=== PATIENT | male | born 1960 | race Caucasian/White ===

== ENCOUNTER 2024-03-25 18:43 | Inpatient (IN) | payer MEDICARE, OTHER ==
[~2024-03-25] VITALS: Ht 182.9 cm; Wt 108.4 kg
[2024-03-25 19:22] LABS: BASOPHILS PERCENT AUTO 0 % (0-2); EOSINOPHILS PERCENT AUTO 0 % (0-6); Hematocrit 30.3 % (37.0-53.0); Hemoglobin 9.8 g/dL (13.5-17.5); IMMATURE GRAN ABSOLUTE AUTO 0.01 K/mm3 (0.00-0.10); IMMATURE GRAN PERCENT AUTO 1 % (0-1); LYMPHOCYTES ABSOLUTE AUTO 0.34 K/mm3 (0.84-5.20); LYMPHOCYTES PERCENT AUTO 23 % (21-46); MONOCYTES ABSOLUTE AUTO 0.29 K/mm3 (0.16-1.47); MONOCYTES PERCENT AUTO 20 % (4-13); Mean Corpuscular HGB Conc 32.3 g/dL (31.5-36.5); Mean Corpuscular Volume 93 fL (80-100); NEUTROPHILS ABSOLUTE AUTO 0.82 K/mm3 (1.96-9.15); NEUTROPHILS PERCENT AUTO 56 % (41-73); Platelet Count 130 K/mm3 (150-400); RDW Standard Deviation 67.4 fL (35.1-46.3); Red Blood Cell Count 3.27 M/mm3 (4.30-5.90); White Blood Cell Count 1.46 K/mm3 (4.00-11.30)
[2024-03-25 19:50] LABS: Albumin/Globulin Ratio 0.8 (0.8-1.8); Bilirubin, Total 0.5 mg/dL (0.1-1.0); Bun/Creatinine Ratio 14.9 (12.0-20.0); Calcium, Blood 9.1 mg/dL (8.5-10.1); Creatinine, Blood 0.8 mg/dL (0.60-1.20); Globulin, Blood 3.9 g/dL (2.2-4.0); Potassium, Blood 3.8 mmol/L (3.5-5.5); Total Protein, Blood 6.9 g/dL (6.4-8.2)
[2024-03-25] MEDS ORDERED: Ibuprofen 600 MG Tab PO ONE (19:50)
[2024-03-25] MEDS ORDERED: FentaNYL Citrate 50 MCG/ML 2 ML Injection IV ONE (20:05)
[2024-03-25] MEDS ORDERED: Piperacillin/Tazobactam Sod 3.375 GM in NS 100 ML IV ONE (20:05)
[2024-03-25 21:01] LABS: Influenza A, PCR NEGATIVE (NEGATIVE); Influenza B, PCR NEGATIVE (NEGATIVE); Resp Syncytial Virus, PCR NEGATIVE (NEGATIVE); SARS-Cov-2 (COVID-19) PCR, MMC NEGATIVE (NEGATIVE)
[2024-03-25 21:35] LABS: Source, Urine Clean Catch
[2024-03-25 21:46] LABS: Appearance, Urine Clear (Clear); Bilirubin, Urine Neg (Neg); Blood, Urine Neg (Neg); Color, Urine Yellow (P-Yellow); Glucose Qualitative, Urine Neg (Neg); Ketones, Urine Neg (Neg); Leukocyte Esterase, Urine 1+ (Neg); Nitrite, Urine Neg (Neg); Protein, Urine Neg (Neg); Specific Gravity, Urine 1.015 (1.003-1.022); Urobilinogen, Urine 1+ (Normal)
[2024-03-25 21:57] LABS: Bacteria Mod /hpf; Red Blood Cells, Urine 0-2 /hpf (0-2); Squamous Epithelial Cells Few /hpf (Few)
[2024-03-25] MEDS ORDERED: Acetaminophen 325 MG TABLET PO PRN (22:55)
[2024-03-25] MEDS ORDERED: FLU VACC TS2024-25(6MOS UP)/PF 45 MCG/0.5 ML SYRINGE IM ONE (22:55)
[2024-03-25] MEDS ORDERED: FentaNYL Citrate 50 MCG/ML 2 ML Injection IV PRN (22:55)
[2024-03-25] MEDS ORDERED: NS 1,000 ML IV ONE (22:55)
[2024-03-25] MEDS ORDERED: Ondansetron HCl 2 MG / ML 2ML Vial IV PRN (22:55)
[2024-03-25] MEDS ORDERED: Enoxaparin 40 MG/0.4 ML SYR SC SCH (23:00)
[2024-03-26] MEDS ORDERED: Cefepime HCl 1,000 MG in NS 100 ML IV SCH
[2024-03-26 06:16] LABS: BASOPHILS PERCENT AUTO 0 % (0-2); EOSINOPHILS ABSOLUTE AUTO 0.01 K/mm3 (0.00-0.68); EOSINOPHILS PERCENT AUTO 1 % (0-6); Hematocrit 26.8 % (37.0-53.0); Hemoglobin 8.5 g/dL (13.5-17.5); IMMATURE GRAN ABSOLUTE AUTO 0.01 K/mm3 (0.00-0.10); IMMATURE GRAN PERCENT AUTO 1 % (0-1); LYMPHOCYTES ABSOLUTE AUTO 0.62 K/mm3 (0.84-5.20); LYMPHOCYTES PERCENT AUTO 37 % (21-46); MONOCYTES ABSOLUTE AUTO 0.43 K/mm3 (0.16-1.47); MONOCYTES PERCENT AUTO 26 % (4-13); Mean Corpuscular HGB 29.8 pg (26.0-34.0); Mean Corpuscular HGB Conc 31.7 g/dL (31.5-36.5); Mean Corpuscular Volume 94 fL (80-100); Mean Platelet Volume 9.2 fL (9.1-12.4); NEUTROPHILS PERCENT AUTO 36 % (41-73); Platelet Count 106 K/mm3 (150-400); RDW Coefficient Variation 20.1 % (11.7-14.2); RDW Standard Deviation 68.5 fL (35.1-46.3); Red Blood Cell Count 2.85 M/mm3 (4.30-5.90); White Blood Cell Count 1.67 K/mm3 (4.00-11.30)
[2024-03-26 06:44] LABS: Albumin, Blood 2.6 g/dL (3.4-5.0); Albumin/Globulin Ratio 0.7 (0.8-1.8); Bilirubin, Total 0.4 mg/dL (0.1-1.0); Bun/Creatinine Ratio 14.5 (12.0-20.0); Calcium, Blood 8.3 mg/dL (8.5-10.1); Creatinine, Blood 0.83 mg/dL (0.60-1.20); Globulin, Blood 3.7 g/dL (2.2-4.0); Potassium, Blood 3.8 mmol/L (3.5-5.5); Total Protein, Blood 6.3 g/dL (6.4-8.2)
[2024-03-26] MEDS ORDERED: ACYCLOVIR800 MG PO (07:45)
[2024-03-26] MEDS ORDERED: [UNRECOGNIZED DRUG - CODE] PO (07:46)
[2024-03-26] MEDS ORDERED: CYCL10 PO (07:47)
[2024-03-26] MEDS ORDERED: LEVOFLOXACIN50011 PO (07:48)
[2024-03-26] MEDS ORDERED: PROZAC40 MG PO (07:48)
[2024-03-26] MEDS ORDERED: PRAV20 PO (07:50)
[2024-03-26] MEDS ORDERED: PAROEX473 ML MM (07:50)
[2024-03-26] MEDS ORDERED: Cyclobenzaprine5 MG PO (07:51)
[2024-03-26] MEDS ORDERED: HYDROXYZ HCL 25 MG PO (07:53)
[2024-03-26] MEDS ORDERED: TRIDERM28.4 GM TOP (07:54)
[2024-03-26] MEDS ORDERED: TAMSULOSIN HCL0.4 M1 PO (07:55)
[2024-03-26] MEDS ORDERED: LISI20 PO (07:55)
[2024-03-26] MEDS ORDERED: METOPROLOL TART25 MG PO (07:56)
[2024-03-26] MEDS ORDERED: Cyclobenzaprine HCl 10 MG Tab PO PRN (09:00)
--- NOTE | 2024-03-26 09:53 | NUR ---
Pt. is awake in bed and welcomes my visit. Pt. is pleasant. Spouse is at bedside. Pt. and spouse verbalized that they were returning home from [facility] [place] when pain caused them to stop at our facility. Facil;itate a life review and listen with interest and emapathy. Pt. verbalized a hope to be able to have his infection clear so they can return home, Prayed with the Pt. and spouse. Both verbalized gratitude for the spiritual care visit.
[2024-03-26] MEDS ORDERED: Cyclobenzaprine HCl 10 MG Tab PO ONE (17:00)
[2024-03-26] MEDS ORDERED: HydrOXYzine Pamoate 25 MG Cap PO PRN (17:05)
--- NOTE | 2024-03-26 17:52 | NUR ---
UNIT TRANSFER NOTE PT AMBULATED WITH FITTER MACHINIST TO RM 220. PT ALERT AND AMBULATING INDEPENDENTLY. ACCOMPANIED PT. PLAN IS TO TRANSFER PT TO [facility] TOMORROW FOR ONGOING ONCOLOGY CARE R/T HIS LEUKEMIA. PT ORIENTED TO ROOM, CALL LIGHT IN REACH, AND SIDE RAILS UP.
--- NOTE | 2024-03-26 17:54 | NUR ---
SHIFT/TRANSFER NOTE: PT A/OX4 ABLE TO MAKE HIS NEEDS KNOWN. HE IS ON RA WITH NO REPORTS OF SOB. HE IS ON TELE IN NSR WITH NO ACUTE CHANGES. HE IS IND WITH ADLS. HE HAS A CLAUDIA PICC LINE THAT IS PATENT. HE TRANSFERED TO SURGICAL FLOOR AT 1750. REPORT GIVEN TO SURGICAL PRIMARY RN. PER PT REQUEST CODE STATUS CHANGED TO DNR. PT WAITING TRANSFER TO [facility].
[2024-03-26] MEDS ORDERED: Triamcinolone Acet 0.1% Ointment 15 GM TOP SCH (18:00)
[2024-03-26] MEDS ORDERED: Triamcinolone Acet 0.1% Ointment 15 GM TOP PRN (18:03)
[2024-03-26 19:21] VITALS: BP 164/85
[2024-03-26] MEDS ORDERED: HYDROmorphone HCl/Pf 1MG SYR IV PRN ×2 (19:50→23:30)
[2024-03-26] MEDS ORDERED: Pravastatin Sodium 20 MG Tab PO SCH (21:00)
[2024-03-26] MEDS ORDERED: Metoprolol Tartrate 25 MG Tab PO SCH (21:00)
[2024-03-26] MEDS ORDERED: Chlorhexidine Mouth Care 15 ML UDC MT SCH (21:00)
[2024-03-26] MEDS ORDERED: Metoprolol Tartrate 1 MG/ML 5 ML VIAL IV ONE (21:30)
--- NOTE | 2024-03-26 21:30 | NUR ---
TELE-AFIB CALL FROM [employer] AT 2116 THAT PT CONVERTED TO AFIB IN THE 140'S, PT HAD BEEN ST IN THW 110'S PRIOR TO THIS. PT HAS HISTORY OF AFIB, AND HAD JUST RECEIVED HIS SCHEDULED HS PO DOSE OF METOPROLOL. VITALS OBTAINED AND PROVIDER NOTIFIED BY FIELD ADJUSTERHEIDI BREWSTER THAT PT CONVERTED TO AFIB IN THE 140'S, AND HAD RECEIVED PO METOPROLOL JUST BEFORE HE CONVERTED TO AFIB. DR. STERLING ORDERED 5 MG OF IV METOPROLOL. 2157- IV METOPROLOL GIVEN. 2203- AFTER METOPROLOL GIVEN, HR CAME DOWN TO AFIB 105 PER [employer] SKIRT PANEL ASSEMBLER. 2223- AFIB 115 PER [employer] MONIOR TECH 2302- PT CONVERTED TO ST 104, PER [employer] SKIRT PANEL ASSEMBLER.
[2024-03-26 21:49] VITALS: BP 151/67
[2024-03-26] MEDS ORDERED: NS 250 ML IV PRN (23:10)
--- NOTE | 2024-03-26 23:28 | NUR ---
PT REPORTING PAIN MED NOT CONTROLLING PAIN FOR Q 6 HR ORDERED. PT HAD RECEIVED 1 MG AND ORDER WAS FOR 1-2 MG.ADDITIONAL 1 MG DOSE GIVEN.I CALLED DR STERLING AND ADVISED OF PAIN CONTROL CONCERNS,ADVISED URINE WAS NOT CULTURED WITH U/A ALTHOUGH PT CURRENTLY ON ANTIBIOTICS AND PT POINTS TO FLANK AREAS WHEN DISCUSSING INCREASED PAIN.ALSO REVIEWED TEMPS.PAIN MED ORDERS CHANGED.
[2024-03-26 23:36] VITALS: BP 139/75
[2024-03-27] VITALS (8 sets, daily range): BP systolic 112–147; BP diastolic 62–76
--- NOTE | 2024-03-27 00:11 | NUR ---
TRANSFER-PCU PT HAS HAD INTERMITTENT SEVERE BACK PAIN/SPASMS THAT HAVE COME AND GONE. FEVERS, TELE CHANGES, AND GENERALLY APPEARS UNWELL. DR. GALARZA HAS BEEN MADE AWARE OF STATUS CHANGES OVER THE COURSE OF THE NIGHT AND ORDERED FOR PT TO TRANSFER TO PCU AT THIS TIME. 1999- PT RECEIVED FENTANYL AND FLEXERIL BEFORE SHIFT CHANGE, THAT PROVIDED LITTLE RELIEF. DR. STERLING CALLED AND NOTIFIED AND IV DILAUDID ORDERED. IV DILAUDID GIVEN SHORTLY AFTER, AND PT REPORTED RELIEF. PT BACK PAIN HAS BEEN INTENSE, REPORTS 10/10, AND PT REPORTED TO PLACING JUDGE THAT THE PAIN WAS IN HIS FLANK AREA. IV DIALUDID INITIALLY ORDERED EVERY 6HR, HOWEVER FREQUENCY WAS LATER CHANGED TO Q4HR Q6HR HAD NOT BEEN [place] FOR PAIN RELIER. 2116-CALL FROM TRANSITION SOCIAL WORKER THAT PT CONVERTED TO AFIB 140'S, IV METOPROLOL GIVEN. 2201-PT CONVERTED BACK TO SINUS, ST 104 PER TRANSITION SOCIAL WORKER. 2205-TYLENOL GIVEN FOR FEVER. 2335- PT RESPONDED TO TYLENOL TEMP HAS NOW COME DOWN 100.6
--- NOTE | 2024-03-27 01:00 | NUR ---
TRANSFER REPORT GIVEN TO [employer] TO ASSUME CARE OF PT. PT BELONGINGS IN PLACE, WAITING FOR PCU ROOM TO BE CLEANED AND MADE AVLAIBLE BEFORE TRANSFER. HOUSKEEPING CLEANING ROOM AT THIS TIME. IV ANTIBIOTICS INFUSING, PT RESTING IN BED. REPORTS THAT HIS PAIN IS IMPROVED 07/26. PT/FAMILY MADE AWARE OF CURRENT PLAN OF CARE.
--- NOTE | 2024-03-27 02:30 | NUR ---
TRANSFERRED PT PER BED TO PCU RM 5 WITH WELDER MACHINE OPERATOR AND THIS RN IN ATTENDANCE. AT BEDSIDE.
--- NOTE | 2024-03-27 03:41 | NUR ---
SHIFT NOTE PT TRANSFERED TO PCU AT APPROXIMATELY 0215. PT RESTING COMFORTABLY IN BED WITHOUT ANY PAIN OR DISCOMFORT. PT TEMP 99.3. PT AND FAMILY STATED [facility] IS REQUESTING FOR HIM TO BE TRANSFERED BACK. CALL LIGHT WITHIN REACH, PLAN OF CARE CONTINUED.
[2024-03-27] MEDS ORDERED: Voriconazole 200 MG Tab PO SCH (06:00)
[2024-03-27] MEDS ORDERED: FLUoxetine HCL 20 MG CAP PO SCH (09:00)
[2024-03-27] MEDS ORDERED: Tamsulosin HCl 0.4 MG Cap PO SCH (09:00)
[2024-03-27] MEDS ORDERED: Acyclovir 400 MG Tab PO SCH (09:00)
[2024-03-27] MEDS ORDERED: Lisinopril 20 MG Tab PO SCH (09:00)
[2024-03-27 09:48] LABS: BASOPHILS PERCENT AUTO 0 % (0-2); EOSINOPHILS PERCENT AUTO 0 % (0-6); Hematocrit 26.3 % (37.0-53.0); Hemoglobin 8.2 g/dL (13.5-17.5); IMMATURE GRAN ABSOLUTE AUTO 0.01 K/mm3 (0.00-0.10); IMMATURE GRAN PERCENT AUTO 1 % (0-1); LYMPHOCYTES ABSOLUTE AUTO 0.49 K/mm3 (0.84-5.20); LYMPHOCYTES PERCENT AUTO 25 % (21-46); MONOCYTES PERCENT AUTO 20 % (4-13); Mean Corpuscular HGB 29.4 pg (26.0-34.0); Mean Corpuscular HGB Conc 31.2 g/dL (31.5-36.5); Mean Corpuscular Volume 94 fL (80-100); Mean Platelet Volume 8.5 fL (9.1-12.4); NEUTROPHILS ABSOLUTE AUTO 1.08 K/mm3 (1.96-9.15); NEUTROPHILS PERCENT AUTO 55 % (41-73); Platelet Count 104 K/mm3 (150-400); RDW Coefficient Variation 19.8 % (11.7-14.2); RDW Standard Deviation 67.7 fL (35.1-46.3); Red Blood Cell Count 2.79 M/mm3 (4.30-5.90); White Blood Cell Count 1.98 K/mm3 (4.00-11.30)
--- NOTE | 2024-03-27 16:35 | NUR ---
SHIFT SUMMARY: PT ALERT AND ORIENTED X4, ABLE TO FOLLOW COMMANDS AND MAKE NEEDS KNOWN. STRENGTH EQUAL BILATERALLY. BP AND HR STABLE. AFEBRILE. SPO2 >98% ON 2L NC. RESPIRATIONS EVEN AND UNLABORED. LUNG SOUNDS DIM IN BASES. PULSES STRONG AND EQUAL THROUGHOUT. ABD MILDY DISTENDED, BOWEL SOUNDS +. PT WITH 3/10 BACK PAIN THIS SHIFT, MEDICATED PER EMAR. PT REMAINS ON WAITLIST TO [facility], NO BEDS AVAILABLE AT THIS TIME. REMAINED AT BEDSIDE THROUGHOUT THE DAY, UPDATED ON PT PLAN OF CARE. BED IN LOW, CALL LIGHT IN REACH, WILL REPORT TO ONCOMING RN.
--- NOTE | 2024-03-27 23:02 | NUR ---
REPORT GIVEN TO BESSY GORDON AT [facility] UN[address], ALL QUESTIONS ANSWERED AT THIS TIME.
[2024-03-28 03:35] VITALS: BP 152/84
[2024-03-28 04:27] LABS: BASOPHILS PERCENT AUTO 0 % (0-2); EOSINOPHILS ABSOLUTE AUTO 0.01 K/mm3 (0.00-0.68); EOSINOPHILS PERCENT AUTO 1 % (0-6); Hematocrit 27.4 % (37.0-53.0); Hemoglobin 8.7 g/dL (13.5-17.5); Mean Corpuscular HGB 29.8 pg (26.0-34.0); Mean Corpuscular HGB Conc 31.8 g/dL (31.5-36.5); Mean Corpuscular Volume 94 fL (80-100); Mean Platelet Volume 8.6 fL (9.1-12.4); Platelet Count 105 K/mm3 (150-400); RDW Coefficient Variation 19.2 % (11.7-14.2); RDW Standard Deviation 66.2 fL (35.1-46.3); Red Blood Cell Count 2.92 M/mm3 (4.30-5.90); White Blood Cell Count 1.78 K/mm3 (4.00-11.30)
[2024-03-28 04:43] LABS: IMMATURE GRAN ABSOLUTE AUTO 0.01 K/mm3 (0.00-0.10); IMMATURE GRAN PERCENT AUTO 1 % (0-1); LYMPHOCYTES ABSOLUTE AUTO 0.46 K/mm3 (0.84-5.20); LYMPHOCYTES PERCENT AUTO 26 % (21-46); MONOCYTES PERCENT AUTO 23 % (4-13); NEUTROPHILS PERCENT AUTO 51 % (41-73)
[2024-03-28 04:53] LABS: Albumin, Blood 2.6 g/dL (3.4-5.0); Albumin/Globulin Ratio 0.7 (0.8-1.8); Bilirubin, Total 0.4 mg/dL (0.1-1.0); Bun/Creatinine Ratio 10.8 (12.0-20.0); Calcium, Blood 8.4 mg/dL (8.5-10.1); Creatinine, Blood 0.83 mg/dL (0.60-1.20); Globulin, Blood 3.7 g/dL (2.2-4.0); Potassium, Blood 3.6 mmol/L (3.5-5.5); Total Protein, Blood 6.3 g/dL (6.4-8.2)
--- NOTE | 2024-03-28 05:56 | NUR ---
SHIFT SUMMARY PT WAS SCHEDULED FOR TRANSPORT TO [facility] AT 11:30 PM, THEN 0500AM, BOTH TIMES DELAYED DT EMERGENCY TRANSPORTS. NEXT TRANSPORT AVAILABLE AT 0900. REPORT CALLED TO KATTY GORDON ON UNIT [facility] OF [facility] (METHODS ANALYST NURSE) AND UPDATED ON DELAYS. UNIT NUMBER [id number]. PT UPDATING . PTS ASSESSMENT IS MOSTLY WITHIN WNL. TEMPS HAVE TRENDED DOWN. PT EXPERIENCED A SEVERE BACK SPASM REQUIRING DILAUDID AND APPLICATION OF A HEATING PAD.
[2024-03-28 07:54] VITALS: BP 155/77
--- NOTE | 2024-03-28 08:57 | NUR ---
TRANSFER OUT AT 0800 BY AMBULANCE. UPDATED REPORT PASSED OFF TO [facility] NURSE ROGERS BY THIS RN. TEMP READING 102, MEDICATED WITH TYLENOL, MORNING MEDS AND PAIN MEDS FOR BACK PAIN. SEE CHARTED VITALS. REPORTED OFF TO AMBULANCE TRANSFER. PATIENT LEFT UNIT AT 0805 WITH ALL PERSONAL BELONGINGS.
== END 2024-03-28 06:55 | disposition short-term general hospital (02) | DRG 872 ==
LOC: ER 18:43 → PCU 22:50 → ERHOLD 22:50 → PCU 03-26 07:35 → SURS 03-26 17:54 → PCU 03-27 02:29
PROVIDERS: Family Medicine; Physician Assistant; Student in an Organized Health Care Education/Training Program; ADMIT Internal Medicine
DX: A41.9 Sepsis, unspecified organism (principal); C92.00 Acute myeloblastic leukemia, not having achieved remission; E87.20 Acidosis, unspecified; D84.9 Immunodeficiency, unspecified; D70.8 Other neutropenia; Z66 Do not resuscitate; R50.81 Fever presenting with conditions classified elsewhere; K80.20 Calculus of gallbladder without cholecystitis without obstruction; M62.830 Muscle spasm of back; Z28.21 Immunization not carried out because of patient refusal
CPT/HCPCS: 0241U; 71046; 74176; 80053; 81001; 83605; 83880; 84484; 85025; 87040; 93005; 93010; 96365; 96375; 99285-25; A9270; J0692; J1171; J1650; J2543; J3010; J7030; J7050